=== PATIENT | female | born 1940 | race Caucasian/White ===

== ENCOUNTER 2016-12-04 20:51 | Emergency (ER) | payer MEDICARE, OTHER ==
[~2016-12-04 20:51] MED LIST: AMLO5TAB22 PO; ASPI81TA82 PO; AZIT250T74 PO; BUME1TAB PO; DOPamine INJ PREMIX 500 ML IV ONE; EPINEPHrine HCL (1:10,000) 1 MG/10 ML SYRINGE IV ONE; LEVE750T8 PO; PERI8.6T PO; PROZ20CA11 PO; SEVEL800 PO; TOPR50TA PO; TRAD5TAB PO; TRAZ50TA4 PO; VYTO10TA35 PO; WARF1TAB PO; WARF2.5T40 PO; XANA1TAB6 PO
[2016-12-04] MEDS ORDERED: SODIUM CHLORID 0.9% 500 ML INJ 500 ML IV ONE (21:15)
[2016-12-04] MEDS ORDERED: DOPamine INJ PREMIX 500 ML IV ONE (21:15)
[2016-12-04] MEDS ORDERED: SODIUM CHLORIDE 0.9% FLUSH 5 ML FLUSH IVF PRN (21:15)
--- NOTE | 2016-12-04 21:25 | RADHPO ---
EXAM DATE/TIME: 12/04/2016 21:08 [place] COMPARISON: No previous studies available for comparison. INDICATIONS : Cardiac arrest MEDICAL HISTORY : Unknown SURGICAL HISTORY : Unknown ENCOUNTER: Initial ACUITY: 1 day PAIN SCORE: Non-responsive. LOCATION: Bilateral chest FINDINGS: There is bilateral airspace consolidation, fairly generalized but especially right upper lobe. No lar ge effusion seen. No pneumothorax. Heart size stable, upper limits of normal. Endotracheal tube tip is about 3 cm above the kitty. CONCLUSION: 1. Bilateral nonspecific infiltrates. 2. Endotracheal tube tip about 3 cm above the kitty. Nayan Ferris MD on December 04, 2016 at 21:22 Board Certified Radiologist. This report was verified electronically.
[2016-12-04 21:30] VITALS: BP 72/47; PULSE 63; RESP 12; O2SAT 100
[2016-12-04 21:32] LABS: AUTOMATED NEUTROPHIL # 10.3 TH/MM3 (1.8-7.7); BASOPHIL # 0.3 TH/MM3 (0-0.2); BASOPHIL % 1.8 % (0.0-2.0); EOSINOPHIL # 0.3 TH/MM3 (0-0.4); EOSINOPHIL % 1.7 % (0.0-4.0); HEMATOCRIT 33.1 % (35.0-46.0); LYMPHOCYTE # 7.1 TH/MM3 (1.0-4.8); MEAN CELL VOLUME 87.7 FL (80.0-100.0); MEAN CORPUSCULAR HEMOGLOBIN 28.7 PG (27.0-34.0); MEAN CORPUSCULAR HGB CONC 32.7 % (32.0-36.0); NEUT % 55.5 % (16.0-70.0); PLATELET COUNT 168 TH/MM3 (150-450); RED BLOOD COUNT 3.77 MIL/MM3 (4.00-5.30); RED CELL DISTRIBUTION WIDTH 13.4 % (11.6-17.2); WHITE BLOOD COUNT 18.6 TH/MM3 (4.0-11.0)
[2016-12-04 21:41] VITALS: O2SAT 0
[2016-12-04 21:45] VITALS: PULSE 120; RESP 12; O2SAT 100
[2016-12-04 21:46] LABS: CHLORIDE 109 MEQ/L (98-107); SODIUM (NA) 145 MEQ/L (136-145)
[2016-12-04 21:49] LABS: HEMO FLAGS AUTO DIFF; POTASSIUM 4.6 MEQ/L (3.5-5.1)
[2016-12-04 21:50] LABS: ANION GAP 22 MEQ/L (5-15); BICARBONATE 14.5 MEQ/L (21.0-32.0); BLOOD UREA NITROGEN 70 MG/DL (7-18); MAGNESIUM 2.9 MG/DL (1.5-2.5)
[2016-12-04 21:53] LABS: ALT (GPT) 622 U/L (10-53); APTT (PATIENT) 53.5 SEC (24.3-30.1); AST (GOT) 704 U/L (15-37); GLOMERULAR FILTRATION RATE 13 ML/MIN (>89); INTERNATIONAL NORMALIZED RATIO 2.4 RATIO; PROTHROMBIN TIME - PATIENT 28.1 SEC (9.8-11.6)
[2016-12-04 21:55] LABS: TOTAL BILIRUBIN ADULT 0.3 MG/DL (0.2-1.0)
[2016-12-04 21:56] LABS: ALKALINE PHOSPHATASE 124 U/L (45-117); CREATINE KINASE 223 U/L (26-192)
--- NOTE | 2016-12-04 22:16 | PD ---
HPI . CODE BLUE Chief Complaint: Code Blue Time Seen by Provider: 21:01 Travel History International Travel<30 days: No (unable to state) Contact w/Intl Traveler<30days: [place] Traveled to: pt unresponsive History of Present Illness HPI Patient presented via EMS status post a respiratory followed by a cardiac arrest. They report that the patient choked on [place] toast. She was apneic on their arrival but did have a pulse. They report that it probably took them about 10 minutes to clear the foreign body and intubate her. In the meantime, she lost her pulse. She was given 2 doses of epinephrine and was treated with compressions. PFSH Past Medical History Hx Anticoagulant Therapy: Yes (coumadin) Asthma: No Atrial Fibrillation: Yes Blood Disorders: No Anxiety: No Depression: No Heart Rhythm Problems: Yes (A-FIB) Cancer: No Cardiac Catheterization: Yes Cardiovascular Problems: Yes (pacemaker) High Cholesterol: Yes Chemotherapy: No COPD: Yes Cerebrovascular Accident: Yes Coronary Artery Disease: Yes Diabetes: Yes Diminished Hearing: Yes (BILATERAL HEARING AIDS) Endocrine: Yes GERD: Yes Genitourinary: Yes (CKD Stage 3) Hepatitis: No Hiatal Hernia: No Hypertension: Yes Immune Disorder: No Kidney Stones: Yes Musculoskeletal: No Neurologic: Yes (TIA) Psychiatric: No Reproductive: No Respiratory: Yes (copd) Radiation Therapy: No Renal Failure: Yes (STAGE 3) Sleep Apnea: No Thyroid Disease: No Menopausal: Yes : 0 Para: 0 Miscarriage: 0 : 0 Past Surgical History Abdominal Surgery: Yes (APPENDECTOMY) Appendectomy: Yes Body Medical Devices: PACEMAKER Cardiac Surgery: Yes (PACEMAKER PLACEMENT) Cholecystectomy: Yes Ear Surgery: No Eye Surgery: No Gynecologic Surgery: Yes (HYSTERECTOMY ) Hysterectomy: Yes Neurologic Surgery: Yes (BACK) Oral Surgery: No Pacemaker: Yes (MEDTRONIC) Thoracic Surgery: No Tonsillectomy: Yes Other Surgery: Yes Social History Alcohol Use: No Tobacco Use: No Substance Use: No Allergies-Medications (Allergen,Severity, Reaction): Coded Allergies: Cipro (Unverified Allergy, Mild, 05/22/16) Demerol (Verified Allergy, Mild, unknown, 05/22/16) Morphine (Unverified Allergy, Mild, 05/22/16) Sulfa (Verified Allergy, Mild, unknown, 05/22/16) Prednisone (Verified Allergy, Unknown, 05/22/16) STATES CAN'T TAKE ANY STEROIDS AND CAN'T REMEMBER WHAT THE REACTION IS Dilaudid (Verified Adverse Reaction, Severe, AMS, 05/22/16) Haldol (Verified Adverse Reaction, Severe, AMS, 05/22/16) Darvocet-N 100 (Verified Adverse Reaction, Mild, nausea, 05/22/16) Uncoded Allergies: STEROIDS (Allergy, Severe, SOB, 05/05/10) Reported Meds & Prescriptions Reported Meds & Active Scripts Active Active Prescriptions or Reported Medications Unobtainable Review of Systems ROS Limitations: Unresponsive Physical Exam Narrative GENERAL: Obese white female with active CPR in progress. SKIN: Warm and dry. HEAD: Atraumatic. Normocephalic. EYES: Pupils equal, fixed and dilated. No eye movement with doll's head maneuver. ENT: No nasal bleeding or discharge. Mucous membranes pink and moist. NECK: Trachea midline. CARDIOVASCULAR: She had a narrow complex rhythm. Initially, there was no apical heart beat. RESPIRATORY: Good breath sounds with ventilation. GASTROINTESTINAL: Abdomen soft, non-tender, nondistended. She has some bruising on her left abdominal wall. MUSCULOSKELETAL: No obvious deformities. NEUROLOGICAL: [place] Coma Score is 3. PSYCHIATRIC: Unable to assess. Data Data Last Documented VS Vital Signs Date Time Temp Pulse Resp B/P Pulse Ox O2 Delivery O2 Flow Rate FiO2 12/04/16 21:41 0 60 Orders Electrocardiogram (12/04/16 21:01) Ckmb (Isoenzyme) Profile (12/04/16 21:01) Complete Blood Count With Diff (12/04/16 21:01) Comprehensive Metabolic Panel (12/04/16 21:01) Magnesium (Mg) (12/04/16 21:01) Prothrombin Time / Inr (Pt) (12/04/16 21:01) Act Partial Throm Time (Ptt) (12/04/16 21:01) Troponin I (12/04/16 21:01) Chest, Single Ap (12/04/16 21:01) Ecg Monitoring (12/04/16 21:01) Bilateral Bp Monitoring (12/04/16 21:01) Iv Access Insert/Monitor (12/04/16 21:01) Oximetry (12/04/16 21:01) Oxygen Administration (12/04/16 21:01) Sodium Chloride 0.9% Flush (Ns Flush) (12/04/16 21:15) Sodium Chlorid 0.9% 500 Ml Inj (Ns 500 M (12/04/16 21:15) Ed Poc Ultrasound (12/04/16 21:01) Dopamine Inj Premix (Dopamine Inj Premix (12/04/16 21:15) Ct Brain W/O Iv Contrast(Rout) (12/04/16 21:11) Patient Transfer (12/04/16 ) CKMB (12/04/16 21:10) CKMB% (12/04/16 21:10) Labs Laboratory Tests Test 12/04/16 21:10 White Blood Count 18.6 TH/MM3 Red Blood Count 3.77 MIL/MM3 Hemoglobin 10.8 GM/DL Hematocrit 33.1 % Mean Corpuscular Volume 87.7 FL Mean Corpuscular Hemoglobin 28.7 PG Mean Corpuscular Hemoglobin 32.7 % Concent Red Cell Distribution Width 13.4 % Platelet Count 168 TH/MM3 Mean Platelet Volume 9.6 FL Neutrophils (%) (Auto) 55.5 % Lymphocytes (%) (Auto) 38.0 % Monocytes (%) (Auto) 3.0 % Eosinophils (%) (Auto) 1.7 % Basophils (%) (Auto) 1.8 % Neutrophils # (Auto) 10.3 TH/MM3 Lymphocytes # (Auto) 7.1 TH/MM3 Monocytes # (Auto) 0.6 TH/MM3 Eosinophils # (Auto) 0.3 TH/MM3 Basophils # (Auto) 0.3 TH/MM3 CBC Comment AUTO DIFF Differential Total Cells 100 Counted Neutrophils % (Manual) 35 % Band Neutrophils % 7 % Lymphocytes % 46 % Monocytes % 4 % Eosinophils % 2 % Neutrophils # (Manual) 8.9 TH/MM3 Metamyelocytes 1 % Myelocytes 4 % Promyelocytes 1 % Nucleated Red Blood Cells 1 /100 WBC Differential Comment FINAL DIFF MANUAL Platelet Estimate NORMAL Platelet Morphology Comment CLUMPED Red Cell Morphology Comment NORMAL Prothrombin Time 28.1 SEC Prothromb Time International 2.4 RATIO Ratio Activated Partial 53.5 SEC Thromboplast Time Sodium Level 145 MEQ/L Potassium Level 4.6 MEQ/L Chloride Level 109 MEQ/L Carbon Dioxide Level 14.5 MEQ/L Anion Gap 22 MEQ/L Blood Urea Nitrogen 70 MG/DL Creatinine 3.50 MG/DL Estimat Glomerular Filtration 13 ML/MIN Rate Random Glucose 311 MG/DL Calcium Level 7.7 MG/DL Magnesium Level 2.9 MG/DL Total Bilirubin 0.3 MG/DL Aspartate Amino Transf 704 U/L (AST/SGOT) Alanine Aminotransferase 622 U/L (ALT/SGPT) Alkaline Phosphatase 124 U/L Total Creatine Kinase 223 U/L Creatine Kinase MB 2.0 NG/ML Creatine Kinase MB % 0.9 % Troponin I LESS THAN 0.02 NG/ML Total Protein 6.9 GM/DL Albumin 2.5 GM/DL MDM Medical Decision Making Medical Screen Exam Complete: Yes Emergency Medical Condition: Yes Medical Record Reviewed: Yes Interpretation(s) EKG showed a regular rhythm with a rate of 70. Do not see pacemaker li. I also do not see P waves. She did have some ST segment depression in V3 and some inverted T waves diffusely in the lateral and inferior leads. Differential Diagnosis Differential diagnosis includes but is not limited to respiratory arrest, primary cardiac arrest. Narrative Course CPR was continued. She was given several more doses of epinephrine. I was about to call the code that she had an apical heart rate. Therefore, dopamine was started. She did develop a blood pressure with dopamine and several doses of epinephrine. I subsequently spoke with her cousin, Yue. He reported that the patient did not want to be on life support. He subsequently was able to provide a living will signed by himself and the patient. I also subsequently talked with her sister, Radha Kennedy, who was able to confirm that the patient did not desire any heroic measures. The sister did asked that we keep the patient on the ventilator until she was able to arrive here along with the wrecker driver. Critical Care Narrative Aggregate critical care time was 45 minutes. Time to perform other separately billable procedures was not included in the critical care time. My time did not include minutes spent treating any other patients simultaneously or on activities that did not directly contribute to the patient's treatment. The services I provided to this patient were to treat and/or prevent clinically significant deterioration that could result in: Brain , further cardiac disability. I provided critical care services requiring my management, as noted below: Chart data review, documentation time, medication orders and management, vital sign assessments/reviewing monitor data, ordering and reviewing lab tests, ordering and interpreting/reviewing x-rays and diagnostic studies, care of the patient and discussion of the patient with the admitting physicians. Procedures Procedure Narrative Emergency department cardiac ultrasound was performed emergently with outpatient consent. [The patient did have cardiac activity. ACLS: ACLS was directed using the usual ACLS protocols for PEA. Diagnosis Primary Impression: Cardiac arrest due to respiratory disorder Scripts Unable to Obtain Active Prescriptions or Reported Meds Disposition: 20 Keila Luz MD Dec 04, 2016 22:16
[2016-12-04 22:43] LABS: BANDS 7 % (0-6); CORRECTED NUCLEATED RBC 1 /100 WBC (0-0); EOSINOPHILS 2 % (0-4); METAMYELOCYTES 1 % (0-1); MYELOCYTES 4 % (0-0); NEUTROPHIL # MANUAL DIFF 8.9 TH/MM3 (1.8-7.7); POLYS (SEG NEUTROPHILS) 35 % (16-70); PROMYELOCYTES 1 % (0-0); WBC DIFF SAMPLE 100
[2016-12-04 22:45] LABS: PLATELET ESTIMATE SMEAR NORMAL (NORMAL); PLATELET MORPHOLOGY CLUMPED (NORMAL); SCAN/DIFF FINAL DIFF MANUAL
[2016-12-05] MEDS ORDERED: MORPHINE SULFATE 8 MG/ML INJ IV PUSH ONE (00:15)
--- NOTE | 2016-12-05 10:40 | EKG ---
Date Performed: 12/04/2016 Time Performed: 20:54:56 PTAGE: 76 years EKG: Accelerated junctional rhythm. Right bundle branch block with secondary ST-T wave changes S T-T wave changes anteriorly are more prominent, cannot exclude possible ischemia Compared to the prev ious tracing, the junctional rhythm is new Abnormal ECG PREVIOUS TRACING : 05/22/2016 05.39 DOCTOR: Brad Vicente Interpretating Date/Time 12/05/2016 10:39:38
== END 2016-12-05 04:32 | disposition expired ==
LOC: PHED 20:51
DX: I46.8 Cardiac arrest due to other underlying condition (principal); J98.9 Respiratory disorder, unspecified; R94.31 Abnormal electrocardiogram [ECG] [EKG]; I48.91 Unspecified atrial fibrillation; E78.00 Pure hypercholesterolemia, unspecified; J44.9 Chronic obstructive pulmonary disease, unspecified; E11.9 Type 2 diabetes mellitus without complications; N18.3 Chronic kidney disease, stage 3 (moderate); I12.9 Hypertensive chronic kidney disease with stage 1 through stage 4 chronic kidney disease, or unspecified chronic kidney disease; Z79.01 Long term (current) use of anticoagulants
CPT/HCPCS: 71010; 80053; 82550; 82552; 83735; 84484; 85007; 85027; 85610; 85730; 92950; 93005; J0171; J1265